=== PATIENT | female | born 1960 ===

== ENCOUNTER → 2018-04-24 08:54 | Outpatient (REF) | payer OTHER, SELFPAY ==
[2018-04-24 09:00] LABS: Hematocrit 39.5 % (36-46); Hemoglobin 12.9 g/dL (12.0-16.0); Mean Corpuscular HGB Conc 32.7 % (30-36); Mean Corpuscular Hemoglobin 29.6 PG (26-34); Mean Corpuscular Volume 90.6 fL (80-100); Platelet Count 201 X10^3/uL (150-400); Red Blood Cell Count 4.36 X10^6/uL (4.0-5.2); Red Cell Distribution Width 13.1 % (11.6-14.8); White Blood Cell Count 4.7 X10^3/uL (4.5-11.0)
[2018-04-24 09:01] LABS: Lymphocytes Percent Auto 22.7 % (25-40); Neutrophils Percent Auto 65.2 % (50-75)
[2018-04-24 09:02] LABS: Add Manual Diff / Slide Review NO; Basophils Absolute Auto 0 /uL (0-100); Basophils Percent Auto 0.7 % (0-2); Eosinophils Absolute Auto 0 /uL (0-450); Lymphocytes Absolute Auto 1 /uL (1100-4500); Monocytes Absolute Auto 0 /uL (0-900); Monocytes Percent Auto 7.4 % (3-14); Neutrophils Absolute Auto 3 /uL (1500-7000)
== END ==
LOC: LAB 08:54
PROVIDERS: PCP Naturopath; Visit Provider Naturopath
DX: Z04.89 Encounter for examination and observation for other specified reasons (principal)
CPT/HCPCS: 85025